=== PATIENT | male | born 1970 | race Caucasian/White ===

== ENCOUNTER → 2017-12-02 07:57 | Outpatient (CLI) | payer OTHER ==
[~2017-12-02 07:57] MED LIST: AQUASOL E15 IU/0.3; COLACE100 MG; DIOVAN160 M1; HYFIBER WI12 GM/30 M; NEURONTIN300 MG; PRILOSEC10 M2; SINGULAIR4 MG; SYNTHROID50 MCG; TOPROL XL25 M1; TYLENOL325 MG
== END | disposition home or self-care (01) ==
LOC: LAB 07:57
DX: E04.0 Nontoxic diffuse goiter (principal); I11.0 Hypertensive heart disease with heart failure; D52.8 Other folate deficiency anemias; N39.0 Urinary tract infection, site not specified; E11.9 Type 2 diabetes mellitus without complications; E55.9 Vitamin D deficiency, unspecified; E78.2 Mixed hyperlipidemia

== ENCOUNTER 2017-12-02 10:42 | Outpatient (CLI) | payer OTHER | END 2017-12-02 10:45 | disposition home or self-care (01) | LOC: SONOGRAMA 10:42 | DX: K76.0 Fatty (change of) liver, not elsewhere classified (principal) ==

== ENCOUNTER 2018-09-21 07:37 | Outpatient (CLI) | payer OTHER | END 2018-09-21 07:41 | disposition home or self-care (01) | LOC: LAB 07:37 | DX: E04.0 Nontoxic diffuse goiter (principal); E78.2 Mixed hyperlipidemia; N39.0 Urinary tract infection, site not specified; E11.9 Type 2 diabetes mellitus without complications; I11.0 Hypertensive heart disease with heart failure; D53.8 Other specified nutritional anemias; M05.79 Rheumatoid arthritis with rheumatoid factor of multiple sites without organ or systems involvement; D64.89 Other specified anemias; D68.8 Other specified coagulation defects; R74.0 Nonspecific elevation of levels of transaminase and lactic acid dehydrogenase [LDH]; E78.00 Pure hypercholesterolemia, unspecified; E03.8 Other specified hypothyroidism; I50.20 Unspecified systolic (congestive) heart failure ==